=== PATIENT | female | born 1980 | race Caucasian/White ===

== ENCOUNTER 2016-05-30 13:37 | Emergency (ER) ==
[2016-05-30 14:07] VITALS: BP 109/62
--- NOTE | 2016-05-30 14:29 | PROVIDER DOCUMENTATION ---
HPI-Musculoskeletal Pain/Inj - GENERAL Chief Complaint: Extremity Pain Stated Complaint: FOOT PAIN Time Seen by Provider: 05/30/16 14:17 Source: patient - HX OF PRESENT ILLNESS-MUSKULOSKELTAL Nature of Presenting Problem: 36 y/o WM c/o left heel pain that began 4-5 months ago, but today it is worse. States she hasn't tried taking much for it, except motrin every once in awhile, but that never helps her. Worse with walking. She Is on her feet most of the day , worse with standing as well. Denies injury previously or now. Pain aching in the heel, without radiation. Review of Systems - Adult - REVIEW OF SYSTEMS - ADULT Constitutional: reports: no symptoms reported. denies: chills, fatique Eyes: reports: no symptoms reported. denies: blurred vision, double vision, eye pain Ears, Nose, Mouth & Throat: reports: no symptoms reported. denies: ear discharge, ear pain, nose pain, throat pain Cardiovascular: reports: no symptoms reported. denies: chest pain, palpitations Respiratory: reports: no symptoms reported. denies: cough, shortness of breath Gastrointestinal: reports: no symptoms reported. denies: abdominal pain, diarrhea, nausea, vomiting Genitourinary: reports: no symptoms reported. denies: dysuria, discharge, frequency, incontinence Musculoskeletal: reports: see HPI, bone pain, muscle aches. denies: back pain, joint pain, neck pain Integumentary: reports: no symptoms reported. denies: rash Neurological: reports: no symptoms reported. denies: headache/migraines Psychiatric: reports: no symptoms reported Endocrine: reports: no symptoms reported Hematologic/Lymphatic: reports: no symptoms reported Allergic/Immunologic: reports: no symptoms reported All Other Systems: Reviewed and Negative Past History - Adult - PAST MEDICAL HISTORY-ADULT Review of Records: reports: Old Records Reviewed, Nursing Assessment Review, Medications Reviewed, Social history reviewed & non-contributory. Major Childhood Illnesses: reports: denies history Cardiovascular: reports: denies history Respiratory: reports: denies history Gastrointestinal: reports: denies history Obstetrical/Gynecological: reports: denies history Genitourinary: reports: other (dysmenorrhea) Musculoskeletal: reports: denies history Neurological: reports: denies history Endocrine/Immune: reports: denies history Other Conditions: reports: denies history - PRIOR SURGERIES/PROCEDURES Surgical/Procedure History: reports: BTL, - IMMUNIZATION STATUS Childhood Immunizations: See Nurse Assessment Flu Vaccine: See Nurse Assessment - FAMILY HISTORY Family History: reviewed, not pertinent - SOCIAL HISTORY Smoking: less than 1 pack/day Provider spent 3-5 mins advising pt. on dangers of tobacco.: Discussed manners to quit use, and f/u contacts for add'l counseling. Substance Use: none/never Alcohol Use Frequency: never Physical Exam-Injury Related - Physical Exam-Injury Related Initial Vital Signs Reviewed: Yes General Appearance: appears well, alert, no apparent distress Eyes: PERRL/EOMI, pink conjunctivae Head, Ears, Nose, Mouth & Throat: normocephalic/atraumatic, moist mucous membranes, normal ENT inspection Neck: non-tender, full range of motion, supple, normal inspection. negative: C- spine tenderness Respiratory: chest non-tender, lungs clear, normal breath sounds, no pleuratic chest pain, no respiratory distress, no accessory muscle use. negative: respiratory distress, decreased breath sounds, accessory muscle use, crackles, rales, rhonchi, stridor, wheezing Cardiovascular: normal peripheral pulses, regular rate, rhythm, no edema, no gallop, no JVD, no murmur Peripheral Pulses: dorsalis-pedis (R): 2+, dorsalis-pedis (L): 2+ Lymphatic: no adenopathy Extremity: normal range of motion, normal gait, normal inspection, no pedal edema, no calf tenderness, normal capillary refill, pelvis stable, tenderness ( left calcaneous), other (strenght 5/5 in dorsi/plantarflexion) Integumentary: normal color, warm/dry Neurologic: grossly normal, no motor/sensory deficits Psych/Mental Status: AL, normal mood/affect, normal thought content, normal thought process, oriented x 3 - Glascow Coma Score Best Eye Response (Johnson): (4) open spontaneously Best Verbal Response (Pennock): (5) oriented Best Motor Response (Johnson): (6) obeys commands Progress - PLAN OF CARE/RESULTS Progress/Plan/Lab Results: Vital Signs Temp Pulse Resp BP Pulse Ox 05/30/16 14:04 97.9 F 93 H 20 109/62 98 promethazine HCl * [From Phenergan] Allergy (Mild, Verified 04/28/16 20:44) HIVES Amoxicillin 500 mg PO BID #14 tablet 04/28/16 Ibuprofen [Motrin] 800 mg PO Q8H PRN PRN #20 tablet 04/28/16 Omeprazole 20 mg PO DAILY #20 tablet. 04/28/16 Orders Category Date Time Status FOOT COMPLETE LEFT [RAD] Stat Exams 05/30/16 14:24 Ordered - XRAY 1 XRAY: Left XRAY Study: Foot Impression: Abnormal (degenerative changes at the Achilles insertion) Procedures - SPLINTING Left Lower Extremity Pre-Fabricated Splint: Walking Boot (mid calf) Applied By: morning babysitter Assisted By: morning babysitter Post Procedure Neurovascular Exam: Intact Departure - Departure Time of Disposition Order: 15:27 DIAGNOSIS: Arthritis Disposition: HOME 01 Certified Medical Emergency: Emergent Condition: Stable Additional Instructions: Follow up with Dr. Cheatham, orthopedic ED Follow Up Instructions: You have been treated by a care provider in the Emergency Department. These instructions are being provided to you so you can have an understanding of how to care for yourself upon discharge. Upon discharge from the Emergency Department, you are responsible for making arrangements for follow-up care by a physician of your choice. Take all prescribed medications as directed. Return to the Emergency Department immediately for any new or worsening symptoms. You may call the Physician Referral phone number at [phone] to obtain a list of Physicians who are taking new patients. Prescriptions: Diclofenac Sodium 50 mg PO Q8-12H PRN PRN #[address] tablet[address] FORD Reason: Pain Cyclobenzaprine [Flexeril] 10 mg PO TID #20 tablet Famotidine [Pepcid] 20 mg PO DAILY #20 tablet Referrals: None,PCP [Primary Care Provider] - Miles Cheatham MD [STAFF PHYSICIAN] - Attestation - Physician/ Mid-level Attestation Patient care was provided by Mid-level provider (LOADING UNIT OPERATOR POWDER CHARGING/PA):: Yes Mid-level provider:: Hayde Franklin Mid-level documentation review:: The Mid-level provider documentation, treatment plan and medical decision making was reviewed by the physician who agrees with all treatment and medical decision making by the MLP.
--- NOTE | 2016-05-30 15:32 | Diag Imaging Result Document ---
PROCEDURE NAME: FOOT COMPLETE LEFT - 05/30/2016 LEFT FOOT 3 VIEWS: COMPARISON: None. FINDINGS: There is some degenerative spurring at the calcaneus, at the Achilles tendon insertion. No fracture or subluxation. The joint spaces are clear. IMPRESSION: Degenerative changes at the Achilles tendon insertion.
== END 2016-05-30 16:09 | disposition home or self-care (01) ==
LOC: ED 13:37
DX: M13.872 Other specified arthritis, left ankle and foot (principal); M79.672 Pain in left foot; M79.1 Myalgia; N94.6 Dysmenorrhea, unspecified; F17.210 Nicotine dependence, cigarettes, uncomplicated; Z71.6 Tobacco abuse counseling
CPT/HCPCS: 99283

== ENCOUNTER 2019-02-23 09:10 | Inpatient (IN) ==
--- NOTE | 2019-02-23 11:52 | Diag Imaging Result Doc PS360 ---
EXAM: CHEST-2 VIEWS HISTORY: pneumonia TECHNIQUE: Chest two views COMPARISON: 11/22/2013 FINDINGS: The lungs are well expanded. The heart is not enlarged. The vessels are not distended. There are basilar infiltrates. No pleural effusions. IMPRESSION: Basilar infiltrates. Electronically signed by Luis F Zeng 02/23/2019 11:50 AM
[2019-02-23] MEDS ORDERED: TYLENOL PO PRN (11:56)
[2019-02-23] MEDS: MORPHINE IV PRN ×3 (12:23→22:45)
[2019-02-23] MEDS: NS 1,000 ML IV SCH ×2 (12:23→21:09)
--- NOTE | 2019-02-23 12:28 | Diag Imaging Result Doc PS360 ---
EXAM: KUB ABDOMEN HISTORY: sbo TECHNIQUE: Abdomen single view COMPARISON: 09/26/2016 FINDINGS: The bowel loops are not dilated. No organomegaly. No foreign body. No abnormal calcifications. IMPRESSION: Negative exam Electronically signed by Luis F Zeng 02/23/2019 12:26 PM
[2019-02-23] MEDS: ROCEPHIN 1 GM in NS 50 ML IV SCH (12:43)
[2019-02-23 12:58] LABS: BASO# 0.02 X1000 (0.0-0.2); BASO% 0.2 % (0.0-0.8); EOS# 0.05 X1000 (0.0-0.7); EOS% 0.4 % (0.0-10.0); HEMATOCRIT 42.7 % (37.0-47.0); HEMOGLOBIN 13.8 g/dL (12.0-16.0); IMM GRAN# 0.04 X1000 (0.0-0.04); IMM GRAN% 0.3 % (0.0-0.5); LYMPH# 2.06 X1000 (1.2-3.4); LYMPH% 15.7 % (20.5-51.1); MCH 29.8 PG (27-31); MCHC 32.3 g/dL (33-37); MCV 92.2 FL (81-99); MONO# 0.76 X1000 (0.11-0.59); MONO% 5.8 % (1.7-9.3); MPV 10.7 FL (7.4-10.4); NEUT# 10.21 X1000 (1.4-6.5); NEUT% 77.6 % (42.2-75.2); PLT 243 X1000 (130-400); RBC 4.63 XMIL (4.2-5.4); RDW 14.8 % (11.5-14.5); WBC 13.14 X1000 (4.8-10.8)
--- NOTE | 2019-02-23 13:03 | HISTORY AND PHYSICAL ---
CHIEF COMPLAINT: Abdominal pain. HISTORY OF PRESENT ILLNESS: Ms. Huff is a 39-year-old female who carries a past medical history and recent diagnosis of sinusitis earlier in the month. She was treated at [facility] monitoring heavy period. She reported since early yesterday morning she felt like she was having contractions. It was worse to her left lower abdomen. She had vomitus today. Last time she ate was around 4 p.m. yesterday. She had a normal BM yesterday as well. No fever. No chills. No cough. No sputum production. She went to the ED at [facility]. She believed they told her that she had some type of blockage. We were told she also had a left lower pneumonia. We will go ahead and make her NPO, start her on IV fluids, treat her for possible pneumonia. Current diagnostics and labs are pending. PAST MEDICAL HISTORY: 1. Migraines. 2. Heavy periods. PAST SURGICAL HISTORY: 3 C-sections, tubal. ALLERGIES: To Phenergan causes hives. Benadryl causes her to be hyper. HOME MEDICATIONS: Flexeril. LAB AND DIAGNOSTICS: Currently pending. REVIEW OF SYSTEMS: Twelve-point review of systems completely negative except for those mentioned in HPI. PHYSICAL EXAMINATION: VITAL SIGNS: Temperature is 97.5 degrees, heart rate 85, respirations 16, blood pressure 115/76, O2 is 97% on room air. GENERAL: Ms. Huff is a pleasant 69-year-old female who is lying in the bed and asleep. She awakens easily. HEENT: Atraumatic, normocephalic. PERRL. NECK: Supple trachea, midline. CARDIOVASCULAR: S1, S2 appreciated. No murmurs, gallops, rubs noted. RESPIRATORY: Lung sounds clear bilaterally. GI: Soft, quite bowel sounds. Left lower quadrant tenderness to palpation. EXTREMITIES: Lower extremities are negative for edema. Bilateral pedal pulses are palpable. NEUROLOGIC: No focal deficits noted. ASSESSMENT AND PLAN: 1. Questionable pneumonia. We will go ahead initiate IV Rocephin. Currently pending diagnostics and laboratory data. 2. Questionable small bowel obstruction per [facility]. We will make her NPO, initiate IV fluids, nausea and pain regimen. Consult GI if needed. Currently awaiting her KUB and laboratory data. 3. Nausea, vomiting, and abdominal pain. See #2. 4. Tobacco use disorder 4. Further recommendation to follow physician evaluation, laboratory and diagnostic data. Dictated by TYLER Rivera for Mak Osorio MD cc: Mak Osorio MD I agree with most components of history, physical, assessment and plan. A separate addendum has been dictated. MTDD
[2019-02-23 13:15] LABS: AGAP 12; ALB/GLOB RATIO 1.3; ALBUMIN 3.5 g/dL (3.5-5.0); ALKALINE PHOSPHATASE 68 U/L (32-104); BUN 6 mg/dL (8-22); CALCIUM 8.2 mg/dL (8.8-10.2); CHLORIDE 107 mmol/L (98-107); COSMO 276; CREATININE 0.5 mg/dL (0.5-0.9); ESTIMATED GFR > 60; GLUCOSE 86 mg/dL (70-104); GOT 21 U/L (10-30); GPT 19 U/L (10-36); POTASSIUM 4.2 mmol/L (3.5-5.1); SODIUM 140 mmol/L (136-145); TCO2 21 mmol/L (25-35); TOTAL BILIRUBIN 0.78 mg/dL (0.20-1.00); TOTAL PROTEIN 6.2 g/dL (6.3-8.3)
[2019-02-23] MEDS ORDERED: NEXIUM IV SCH (13:15)
[2019-02-23] MEDS ORDERED: SODIUM CHLORIDE 0.9% INJ SCH (13:15)
[2019-02-23 13:29] LABS: BANDS 6 % (0-1); EOS 2 % (1-10); LYMPHS 16 % (21-51); SEGS 76 % (42-75)
[2019-02-23 13:52] LABS: AMYLASE 34 U/L (20-200); LIPASE 11 U/L (13-60)
[2019-02-23] MEDS ORDERED: LEVSIN-SL SL PRN (14:16)
[2019-02-23] MEDS: SODIUM CHLORIDE 0.9% INJ SCH (15:08)
[2019-02-23] MEDS: PROTONIX IV SCH (15:08)
--- NOTE | 2019-02-23 16:52 | Diag Imaging Result Doc PS360 ---
CT ABDOMEN/PELVIS W/O CONTRAST - 02/23/2019 INDICATION: Evaluate for SBO/cholecystitis/bowel perf COMPARISON: None FINDINGS: There are patchy infiltrates or areas of dense atelectasis in both lung bases. Heart size is normal with no pericardial effusion. No radiodense renal stones. No hydronephrosis or hydroureter. Abdominal organs are all normal. No bowel obstruction or inflammation. There is some trace pelvic free fluid. Urinary bladder, uterus, ovaries, and rectum are normal. Bones are intact and well mineralized. IMPRESSION: 1. Patchy infiltrates or atelectasis in the lung bases, nonspecific. 2. Trace pelvic free fluid presumably physiologic. This exam was performed using automated exposure control, adjustment of mA or kV according to patient size, and/or use of iterative reconstruction technique Electronically signed by Ignacio Hollingsworth 02/23/2019 4:50 PM
--- NOTE | 2019-02-23 21:19 | HISTORY AND PHYSICAL ---
ADDENDUM REPORT: Addendum to the History and Physical dictated by the nurse practitioner. I agree with most components of the history, physical, assessment, and plan. In brief, Ms. Huff is a 39-year-old lady with a past medical history of constipation, section, tubal ligation, who was in [facility] for chief complaint of vomiting, where she was also complaining of abdominal pain which started out of nowhere today morning. At [facility], they had performed a CAT scan of the abdomen and pelvis which had detected a suspected small bowel obstruction. Since they did not have any surgical services, they transferred patient over here; however, there was no CT scan report transferred with that, and they did not send over CT scan disk as well. I evaluated the patient at bedside, and currently, she states she is feeling nauseous, but she has not been vomiting since she has been in this hospital. She states her abdominal pain started suddenly in periumbilical region. It is colicky in nature, comes for every few minutes, lasts for a few seconds to a few minutes, and then goes away, located in the center of the abdomen without any radiation. She has had associated nausea. She denies known history of gallbladder stones, though she does have a strong family history of it. She is an active smoker. She denies known history of coronary artery disease. VITALS: Temperature of 98.5 degrees, pulse 93, respiratory rate 17, blood pressure 117/73, she is saturating 93% on room air. PHYSICAL EXAMINATION: On examination, she is in mild distress because of abdominal pain. During my encounter, she did have an episode of colicky abdominal pain, where she suddenly started experiencing periumbilical pain. Her air entry is bilaterally equal with no wheeze, rhonchi, crackles. S1, S2 normal. No murmur, rub, or gallop. Abdomen is soft. There is tenderness more marked in the periumbilical/right upper quadrant region, and she has voluntary guarding, but no rigidity. Bowel sounds are hypoactive. No lower extremity edema. She is alert and oriented x3. DIAGNOSTIC STUDIES: Labs suggestive of leukocytosis, normal platelet count. Normal electrolytes. Urine test was negative. Blood cultures are in lab. ASSESSMENT AND PLAN: 1. Abdominal pain of unclear etiology. 2. Active tobacco abuse. 3. Questionable small bowel obstruction, as per the report given to us by [facility]. 4. Questionable pneumonia, as per the report given by [facility]. PLAN: I will start patient on intravenous fluids. We will give her intravenous morphine as needed. I will also start her on intravenous antiemetic and intravenous pantoprazole and intravenous ceftriaxone. We will get CT scan of the abdomen and pelvis to evaluate her abdominal pain better. Plan of care discussed with her and her family members at bedside. Their questions have been answered. cc: Mak Osorio MD
[2019-02-23] MEDS: FLAGYL 500 MG/NS 500 MG/100 ML IVPB IV SCH (21:26)
[2019-02-23] MEDS: ZOFRAN IV PRN (22:45)
[2019-02-23] MEDS ORDERED: NICODERM PATCH TD ONE (23:09)
[2019-02-24] MEDS: FLAGYL 500 MG/NS 500 MG/100 ML IVPB IV SCH (03:15)
--- NOTE | 2019-02-24 03:59 | HISTORY AND PHYSICAL ---
ADDENDUM: I evaluated the patient at bedside again. I discussed with her about abdomen/pelvis CT finding, where there were patchy infiltrates or atelectasis in the lung bases. There was trace pelvic free fluid, which may be physiologic, but there was no evidence of bowel obstruction or inflammation. She is still experiencing intermittent abdominal pain. Apparently, she just had a bowel movement which looked watery, and she had incontinence because of that. There were some stool particles mixed with it. She is still experiencing periumbilical abdominal pain. I will keep the patient on intravenous antibiotics. I will also add intravenous metronidazole. We will add stool studies since, on my review of imaging, she does appear to have slight thickening of wall of ileum, especially the terminal ileum. I will also get stool studies to rule out suspected enteritis. Plan of care discussed with her. Her questions have been answered. cc: Mak Osoroi MD
[2019-02-24 06:58] LABS: BASO# 0.01 X1000 (0.0-0.2); BASO% 0.1 % (0.0-0.8); EOS# 0.09 X1000 (0.0-0.7); EOS% 1.1 % (0.0-10.0); HEMATOCRIT 37.7 % (37.0-47.0); HEMOGLOBIN 12.2 g/dL (12.0-16.0); IMM GRAN# 0.02 X1000 (0.0-0.04); IMM GRAN% 0.2 % (0.0-0.5); LYMPH% 12.4 % (20.5-51.1); MCHC 32.4 g/dL (33-37); MCV 92.6 FL (81-99); MONO# 0.54 X1000 (0.11-0.59); MONO% 6.7 % (1.7-9.3); MPV 10.8 FL (7.4-10.4); NEUT# 6.41 X1000 (1.4-6.5); NEUT% 79.5 % (42.2-75.2); PLT 238 X1000 (130-400); RBC 4.07 XMIL (4.2-5.4); RDW 14.5 % (11.5-14.5); WBC 8.07 X1000 (4.8-10.8)
--- NOTE | 2019-02-24 07:14 | Diag Imaging Result Doc PS360 ---
EXAM: CHEST-PORTABLE 02/24/2019 HISTORY: Pneumonia TECHNIQUE: AP portable at 0617 COMMENT: The inspiration is suboptimal. There are platelike opacities in both lung bases. This has worsened on the left. The inspiration is also less optimal than on the previous study however. IMPRESSION: Bibasilar atelectasis. Electronically signed by Travon Orellana 02/24/2019 7:12 AM
[2019-02-24 07:30] LABS: AGAP 11; ALB/GLOB RATIO 1.4; ALKALINE PHOSPHATASE 67 U/L (32-104); BUN 5 mg/dL (8-22); CALCIUM 7.2 mg/dL (8.8-10.2); CHLORIDE 108 mmol/L (98-107); COSMO 274; CREATININE 0.5 mg/dL (0.5-0.9); ESTIMATED GFR > 60; GLUCOSE 89 mg/dL (70-104); GOT 14 U/L (10-30); GPT 14 U/L (10-36); MAGNESIUM 1.8 mg/dL (1.5-2.7); POTASSIUM 3.8 mmol/L (3.5-5.1); SODIUM 139 mmol/L (136-145); TCO2 20 mmol/L (25-35); TOTAL BILIRUBIN 1.09 mg/dL (0.20-1.00); TOTAL PROTEIN 5.1 g/dL (6.3-8.3)
[2019-02-24] MEDS: NS 1,000 ML IV SCH ×2 (07:58→17:57)
[2019-02-24] MEDS: NICODERM PATCH TD SCH (08:44)
[2019-02-24] MEDS: VANCOCIN PO SCH ×3 (08:48→21:29)
[2019-02-24] MEDS: MORPHINE IV PRN ×3 (08:49→20:23)
[2019-02-24] MEDS: PROTONIX IV SCH (13:23)
[2019-02-24] MEDS: SODIUM CHLORIDE 0.9% INJ SCH (13:23)
[2019-02-24] MEDS: ROCEPHIN 1 GM in NS 50 ML IV SCH (13:23)
[2019-02-24] MEDS: ZOFRAN IV PRN (20:23)
[2019-02-24] MEDS: LOVENOX SUBQ SCH (21:29)
--- NOTE | 2019-02-24 22:08 | PROGRESS NOTE ---
DATE: 02/24/2019 SUBJECTIVE: The patient is resting comfortably. She complains of generalized abdominal pain. Her C. difficile assay was positive. OBJECTIVE: Vital Signs: Temperature 98 degrees, blood pressure 103/68, heart rate 82, respirations 18, O2 saturation is 100% on room air. General: This is an overweight female, lying in bed in no acute distress. Heart: S1, S2 normal. Regular rate and rhythm. Lungs: Clear to auscultation bilaterally. Abdomen: Positive bowel sounds. Soft. Diffuse tenderness. Extremities: No edema. No cyanosis. Neurologic: The patient is alert and oriented x4. LABORATORY: White blood cell count 8, hemoglobin 12, hematocrit 37, platelets 238,000. Sodium 139, potassium 3.8, chloride 108, CO2 of 20, BUN 5, creatinine 0.5. ASSESSMENT AND PLAN: 1. Clostridium difficile colitis. The patient has been started on oral vancomycin. We will continue with IV fluid hydration. 2. Gastrointestinal prophylaxis. Continue on Protonix. 3. Deep vein thrombosis prophylaxis. Will start the patient on Lovenox. cc: Alba Zhu MD MTDD
[2019-02-25] MEDS: VANCOCIN PO SCH ×4 (01:50→20:38)
[2019-02-25] MEDS: NS 1,000 ML IV SCH ×3 (01:50→09:21)
[2019-02-25] MEDS: MORPHINE IV PRN ×2 (05:35→20:37)
[2019-02-25 07:50] LABS: HEMATOCRIT 35.7 % (37.0-47.0); HEMOGLOBIN 11.7 g/dL (12.0-16.0); MCHC 32.8 g/dL (33-37); MCV 94.4 FL (81-99); MPV 10.7 FL (7.4-10.4); RBC 3.78 XMIL (4.2-5.4); RDW 14.5 % (11.5-14.5); WBC 6.62 X1000 (4.8-10.8)
[2019-02-25 08:09] LABS: AGAP 8; BUN 2 mg/dL (8-22); CALCIUM 7.8 mg/dL (8.8-10.2); CHLORIDE 110 mmol/L (98-107); COSMO 277; CREATININE 0.6 mg/dL (0.5-0.9); ESTIMATED GFR > 60; GLUCOSE 84 mg/dL (70-104); POTASSIUM 4.3 mmol/L (3.5-5.1); SODIUM 141 mmol/L (136-145); TCO2 23 mmol/L (25-35)
[2019-02-25] MEDS: NICODERM PATCH TD SCH (09:18)
[2019-02-25] MEDS ORDERED: ULTRAM PO PRN (10:03)
[2019-02-25] MEDS: CULTURELLE PO SCH ×2 (13:14→20:37)
[2019-02-25] MEDS: PROTONIX IV SCH (13:15)
[2019-02-25] MEDS: SODIUM CHLORIDE 0.9% INJ SCH (13:15)
[2019-02-25] MEDS: LOVENOX SUBQ SCH (20:37)
--- NOTE | 2019-02-26 01:43 | PROGRESS NOTE ---
DATE: 02/25/2019 SUBJECTIVE: The patient complains of mild abdominal pain. She states that she has not had any diarrhea since yesterday evening. OBJECTIVE: Vital signs: Temperature 98.2 degrees, blood pressure 105/72, heart rate 77, respirations 18, O2 saturation 95% on room air.General: This is an overweight female lying in bed, in no acute distress. Heart: S1, S2 normal. Regular rate and rhythm. Lungs clear to auscultation bilaterally. Abdomen: Positive bowel sounds. Soft. Diffuse tenderness. Extremities: No edema. No cyanosis. Neurologic: The patient is alert and oriented x4. LABORATORY DATA: Hemoglobin 11, hematocrit 35, platelets 215,000. Sodium 141, potassium 4.3, chloride 110, CO2 is 23, BUN 2, creatinine 0.6. ASSESSMENT AND PLAN: 1. Clostridium difficile colitis. The patient reports that she was exposed to antibiotics for a sinus infection about a week ago. Today is day 2 of oral vancomycin therapy. Continue on lactobacillus. 2. Tobacco dependence. The patient has been counseled about smoking cessation. 3. Morbid obesity. Aware. The patient has been counseled about weight loss and proper diet. 4. Deep venous thrombosis prophylaxis. Continue on Lovenox. cc: Alba Zhu MD MTDD
[2019-02-26] MEDS: NS 1,000 ML IV SCH ×2 (01:49→04:44)
[2019-02-26] MEDS: VANCOCIN PO SCH ×2 (03:18→08:56)
[2019-02-26] MEDS: MORPHINE IV PRN (04:45)
[2019-02-26 07:49] VITALS: BP 112/68
[2019-02-26 07:51] LABS: AGAP 11; BUN 4 mg/dL (8-22); CALCIUM 7.8 mg/dL (8.8-10.2); CHLORIDE 109 mmol/L (98-107); COSMO 275; CREATININE 0.5 mg/dL (0.5-0.9); ESTIMATED GFR > 60; GLUCOSE 82 mg/dL (70-104); POTASSIUM 3.9 mmol/L (3.5-5.1); SODIUM 140 mmol/L (136-145); TCO2 20 mmol/L (25-35)
[2019-02-26] MEDS: CULTURELLE PO SCH (08:56)
[2019-02-26] MEDS: NICODERM PATCH TD SCH (08:56)
== END 2019-02-26 12:48 | disposition home or self-care (01) | DRG 373 ==
LOC: SUATTDRO 09:10 → DIRADM 09:10 → 4N 10:44
PROVIDERS: ATTEND Internal Medicine